=== PATIENT | male | born 1935 | race Caucasian/White ===

== ENCOUNTER 2016-07-30 21:54 | Inpatient (IN) | payer OTHER ==
[~2016-07-30] VITALS: Ht 160 cm; Wt 49.9 kg
[~2016-07-30 21:54] MED LIST: COL100 PO; ECO81 PO; ENALAPRIL MALEA10 MG PO; LAC PO; LEVAQUIN750 MG PO; LIPI10 PO; OSCD PO; PRI20 PO; TOP50 PO; TYL325 PO; ZES10 PO; ZOFI IV; ZOS3PM IV
[2016-07-30 23:15] LABS: BASOPHIL % 0.4 % (0-2); PLATELET COUNT 188 x10^3mcL (130-400)
[2016-07-30 23:18] LABS: RED CELL DISTRIBUTION WIDTH 16.4 % (11.5-14.5)
[2016-07-30 23:22] LABS: CALCIUM 9.4 mg/dL (8.5-10.1); CARBON DIOXIDE 24.6 mmol/L (21-32); CHLORIDE SERUM 107 mmol/L (98-107); CREATININE SERUM 1.1 mg/dL (0.7-1.3); GLUCOSE SERUM 113 mg/dL (74-106); POTASSIUM SERUM 3.8 mmol/L (3.5-5.1); SODIUM SERUM 142 mmol/L (136-145)
[2016-07-30 23:26] LABS: ALKALINE PHOSPHATASE 56 U/L (46-116); ALT/SGPT 12 U/L (16-63); AST/SGOT 15 U/L (15-37); BILIRUBIN TOTAL 0.89 mg/dL (0.20-1.00); HDL CHOLESTEROL 42 mg/dL (40-60); TOTAL PROTEIN, SERUM 6.3 g/dL (6.4-8.2)
[2016-07-30 23:28] LABS: ALBUMIN 3.2 g/dL (3.4-5.0); CHOLESTEROL 110 mg/dL (<200)
[2016-07-31] VITALS (7 sets, daily range): BP systolic 135–175; BP diastolic 63–80
[2016-07-31] LABS: microscopic required? NO
[2016-07-31 00:04] LABS: urine erythrocyte NEGATIVE (NEGATIVE)
[2016-07-31 02:07] LABS: CHOLESTEROL/HDL RATIO 2.6
[2016-07-31 02:16] LABS: T3 TOTAL 0.71 ng/mL
[2016-07-31 02:37] LABS: FREE T4 1.38 ng/dL (0.76-1.46); FREE THYROXINE INDEX 3.4 ug/dL (1.4-4.5); T4(THYROXINE) 9.5 ug/dL (4.7-13.3)
[2016-08-01 05:38] VITALS: BP 137/79
[2016-08-01 07:10] LABS: BASOPHIL % 0.5 % (0-2); PLATELET COUNT 184 x10^3mcL (130-400)
[2016-08-01 07:13] LABS: RED CELL DISTRIBUTION WIDTH 16.5 % (11.5-14.5)
[2016-08-01 07:32] LABS: CALCIUM 8.4 mg/dL (8.5-10.1); CARBON DIOXIDE 24.6 mmol/L (21-32); CHLORIDE SERUM 110 mmol/L (98-107); GLUCOSE SERUM 106 mg/dL (74-106); MAGNESIUM 1.7 mg/dL (1.8-2.4); PHOSPHOROUS 3.4 mg/dL (2.5-4.9); POTASSIUM SERUM 3.3 mmol/L (3.5-5.1); SODIUM SERUM 144 mmol/L (136-145)
[2016-08-01 09:39] VITALS: BP 142/70
[2016-08-01 13:34] VITALS: BP 110/55
[2016-08-01 17:12] VITALS: BP 106/50
[2016-08-01 22:00] VITALS: BP 101/48
[2016-08-02] VITALS (9 sets, daily range): BP systolic 81–145; BP diastolic 40–74; Ht 160 cm; Wt 49.9 kg
[2016-08-02 05:55] LABS: BASOPHIL % 0.5 % (0-2); PLATELET COUNT 168 x10^3mcL (130-400)
[2016-08-02 06:10] LABS: CALCIUM 8.9 mg/dL (8.5-10.1); CARBON DIOXIDE 27.6 mmol/L (21-32); CHLORIDE SERUM 108 mmol/L (98-107); CREATININE SERUM 1.1 mg/dL (0.7-1.3); GLUCOSE SERUM 89 mg/dL (74-106); MAGNESIUM 1.7 mg/dL (1.8-2.4); PHOSPHOROUS 2.3 mg/dL (2.5-4.9); POTASSIUM SERUM 4.4 mmol/L (3.5-5.1); SODIUM SERUM 144 mmol/L (136-145)
[2016-08-02 06:29] LABS: RED CELL DISTRIBUTION WIDTH 17.1 % (11.5-14.5)
[2016-08-03] VITALS (9 sets, daily range): BP systolic 61–130; BP diastolic 39–107
[2016-08-03 10:25] LABS: CALCIUM 8.4 mg/dL (8.5-10.1); CARBON DIOXIDE 23.3 mmol/L (21-32); CHLORIDE SERUM 108 mmol/L (98-107); CREATININE SERUM 1.9 mg/dL (0.7-1.3); GLUCOSE SERUM 121 mg/dL (74-106); MAGNESIUM 1.6 mg/dL (1.8-2.4); PHOSPHOROUS 4.2 mg/dL (2.5-4.9); POTASSIUM SERUM 3.7 mmol/L (3.5-5.1); SODIUM SERUM 141 mmol/L (136-145)
[2016-08-03 11:18] LABS: PLATELET COUNT 89 x10^3mcL (130-400); RED CELL DISTRIBUTION WIDTH 16.7 % (11.5-14.5)
[2016-08-03 12:00] LABS: BAND NEUTROPHIL 58 % (0-10); BASOPHIL 0 % (0-2); METAMYELOCTE 8 % (0-2); MONOCYTE 2 % (0-7); MYELOCYTE 3 % (0-2); SEGMENTED NEUTROPHILS 26 % (37-75); rbc morphology (normal/abnorm) ABNORMAL (NORMAL)
[2016-08-03 12:02] LABS: acanthocyte (spur cell) 1+; burr cell (echinocyte) 1+; schistocyte (helmet cell) 1+
[2016-08-03 12:03] LABS: ovalocyte/elliptocyte 1+
== END 2016-08-03 16:55 | disposition expired | DRG 56 ==
LOC: ED 21:54 → DU 07-31 00:43 → IC 08-03 15:28
PROVIDERS: Emergency Medicine; Family Medicine; ADMIT Family Medicine
PROC: 5A1935Z Respiratory Ventilation, Less than 24 Consecutive Hours (ICD-10-PCS; principal; 2016-08-03)
PROC: 0BH17EZ Insertion of Endotracheal Airway into Trachea, Via Natural or Artificial Opening (ICD-10-PCS; 2016-08-03)
PROC: 5A12012 Performance of Cardiac Output, Single, Manual (ICD-10-PCS; 2016-08-03)
DX: G30.9 Alzheimer's disease, unspecified (principal); J96.00 Acute respiratory failure, unspecified whether with hypoxia or hypercapnia; G93.41 Metabolic encephalopathy; I50.43 Acute on chronic combined systolic (congestive) and diastolic (congestive) heart failure; E44.1 Mild protein-calorie malnutrition; I69.354 Hemiplegia and hemiparesis following cerebral infarction affecting left non-dominant side; Z68.1 Body mass index [BMI] 19.9 or less, adult; M48.56XA Collapsed vertebra, not elsewhere classified, lumbar region, initial encounter for fracture; I42.0 Dilated cardiomyopathy; I11.0 Hypertensive heart disease with heart failure; I35.0 Nonrheumatic aortic (valve) stenosis; E86.0 Dehydration; I27.2 Other secondary pulmonary hypertension; D64.89 Other specified anemias; M54.89 Other dorsalgia; J44.9 Chronic obstructive pulmonary disease, unspecified; M51.36 Other intervertebral disc degeneration, lumbar region; F17.210 Nicotine dependence, cigarettes, uncomplicated; Z91.81 History of falling; I25.2 Old myocardial infarction; Z95.0 Presence of cardiac pacemaker; Z95.1 Presence of aortocoronary bypass graft; Z85.810 Personal history of malignant neoplasm of tongue; Z85.46 Personal history of malignant neoplasm of prostate; F02.80 Dementia in other diseases classified elsewhere, unspecified severity, without behavioral disturbance, psychotic disturbance, mood disturbance, and anxiety
CPT/HCPCS: 83880; 84439; 97116-GP; 97530-GP; A4628; J0171; J0360; J1100; J1644; J1940; J2310; J3490; J7030; J7050; J7620; J7626; Q0092